=== PATIENT | female | born 1970 | race Caucasian/White ===

== ENCOUNTER 2018-01-30 12:04 | Observation (INO) ==
[2018-01-30] MEDS ORDERED: Ketorolac 15 MG/ML VIAL IVP ONE (12:52)
--- NOTE | 2018-01-30 12:56 | Emergency Department Note ---
Disposition Clinical Impression: Paresthesia of both feet Hand paresthesia Qualifiers: Laterality: bilateral Qualified Code(s): R20.2 - Paresthesia of skin Disposition: Admitted As Inpatient Condition: Good Referrals: NONE,PCP [Non-Partnered Physician] - Forms: ED Satisfaction Letter Time of Disposition: 15:46 General Adult HPI - General Chief complaint: ED Weakness Stated complaint: diffuse wekness from Dr. Sy Time Seen by Provider: 01/30/18 12:14 Source: patient, family Mode of arrival: ambulatory Limitations: no limitations, physical limitation Nursing Notes Reviewed: Yes Vital Signs Reviewed: Yes - History of Present Illness HPI Narrative: Patient presents emergency room from the neurology office today for evaluation of bilateral upper and lower extremity numbness sensation. Both these areas are isolated to distal to the wrist and ankles. Patient denies any trauma or injury. No other specific history patient seen and evaluated at outside facility and evaluated at the neurology office here today and they recommended she come in for laboratory workup imaging and admission. Patient is otherwise currently stable and has no other complaints. Onset (ago): week(s) Location: other Radiation: non-radiation Pain Severity: moderate Pain Scale: 5 Quality: other Consistency: constant Improves with: nothing Worsens with: nothing Associated symptoms: Reports: denies other symptoms Treatments Prior to Arrival: none - Related Data Home Medications Medication Instructions Recorded Confirmed Acyclovir [Zovirax] 800 mg PO BID 01/30/18 01/30/18 Buspirone HCl [Buspar] 30 mg PO BID 01/30/18 01/30/18 Cyclobenzaprine [Flexeril] 10 mg PO TID 01/30/18 01/30/18 MethylPREDNISolone See Taper PO AD 01/30/18 01/30/18 [MethylPREDNISolone Dose Pack] Allergies Allergy/AdvReac Type Severity Reaction Status Date / Time ciprofloxacin Allergy Difficulty Verified 01/30/18 12:11 Breathing All systems ED: reviewed and negative except as stated. Review of Systems: As Per HPI Constitutional: Reports: weakness. Denies: fever, chills Eyes: Denies: eye pain, eye discharge ENT ED: Denies: ear pain Cardiovascular: Denies: chest pain, palpitations, dyspnea on exertion, orthopnea Respiratory: Denies: cough, dyspnea, wheezes Gastrointestinal: Denies: abdominal pain, nausea, vomiting, diarrhea, constipation Genitourinary: Denies: urgency, dysuria, frequency Musculoskeletal: Reports: myalgia. Denies: back pain, neck pain Integumentary: Denies: rash, abrasion Neurological: Denies: headache Endocrine: Denies: fatigue Past Medical History - Past Medical History Attestation: Yes The following information was validated with the patient. Source: patient Medical history: Reports: other Psychiatric history: Reports: depression [employer] history: Reports: endometriosis - Social History Smoking Status: Never smoker Smokeless Tobacco Status: No Alcohol use: Reports: occasionally Drug use: Reports: none Physical Exam - General Limitations: physical limitation General appearance: alert, in no apparent distress - Head Head exam: atraumatic, normocephalic, normal inspection - Eye Eye exam: Present: normal appearance, PERRL, EOMI. Absent: miosis, mydriasis - ENT ENT exam: normal exam, normal oropharynx, mucous membranes moist - Neck Neck exam: Present: normal inspection, full ROM, trachea midline. Absent: tenderness, meningismus, lymphadenopathy - Chest Chest inspection: Present: normal inspection, symmetric chest wall rise - Respiratory Respiratory exam: Present: normal lung sounds bilaterally. Absent: respiratory distress, wheezes - Cardiovascular Cardiovascular exam: Present: regular rate, normal rhythm, normal heart sounds - Abdominal Exam Abdominal exam: Present: soft, Non-Tender, normal bowel sounds. Absent: tenderness, distention, guarding, rebound, rigidity - Extremities Exam Extremities exam: Present: normal inspection, full ROM, normal capillary refill. Absent: tenderness - Back Exam Back exam: Present: normal inspection - Neurological Exam Neurological exam: Present: alert, oriented X3, CN II-XII intact, normal gait, other - Skin Skin exam: Present: warm, dry, intact, normal color Course Course Narrative: 47-year-old female presents emergency room in the neurology office. Attempted to call the on-call neurologist Dr. sy. Patient has been seen and evaluated outside facility and sent to them and referral for possible issues of paresthesias to the hands and feet. The symptoms are isolated distal to the wrist and ankle at this point. She has no history of trauma or injury. No family history of MS, ALS, neurologic issues or deficits. Patient has not been started on a new medications. 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 Patient denies any other history of syphilis or neurologic issues. She has never had surgery or manipulation to her spine. Vital signs of an stable. She does not have any exposure to ticks. Is a context the situation she is sent to the emergency room for lumbar puncture and admission with possible TX. She is also recommended a Y evaluation. CBC chemistry magnesium and phosphorus along with calcium ordered here in the emergency room. CSF evaluation for syphilis, herpes, generalized evaluation will be completed. Patient will also have screening titers for [place] spotted fever and Lyme disease. Presentation is abnormal at this point. Head is atraumatic pupils are equal and reactive extraocular muscles are intact. EKG was collected shows sinus rhythm and no other acute pathology. There is one single T-wave inversion in lead 3 otherwise has no acute changes or issues. No acute signs of ST segment elevation. Patient will also have evaluation. At this point admission process to be established. Physical exam is unremarkable. Pupils are reactive patient's lungs are clear heart is regular abdomen is soft. She has what is described as paresthesias to the bilateral hands and feet otherwise his sensation in her calves lower forearm and upper arm as well as the upper thigh are all unremarkable. Patient will have this screening evaluation completed here in the disposition will be determined. Patient will most likely need admission. Consultation to neurology will be completed. Lumbar puncture was consented for this time there is benefits and alternatives this were discussed. Patient otherwise clinically stable. - Reevaluation(s) Reevaluation #1: Attempt was made at the lumbar punctures in the emergency room. One attempt at the L4-L5 distribution and one attempt at the L3-L4 distribution were completed. Bone was met on several advances at the L3 and L4 distribution. At that time the procedure was aborted considering after the bony anatomy was encountered patient started to have some blood in the needle. Radiology lumbar puncture will be completed this point admission process to be established. Time: 14:15 Reevaluation #2: LP was completed with fluoroscopy without any complication. Patient is comfortable to better this time per labs unremarkable. Hospitalist was contacted for admission and further management. The remainder of the laboratory workup will be completed inpatient setting. Consultation for neurology was placed in the chart at this time. No other recommendations or issues noted with the hospitalist. Patient is otherwise clinically stable. Time: 15:44 Vital Signs Temperature 98.3 F 01/30/18 12:11 Pulse Rate 94 01/30/18 12:11 Respiratory Rate 18 01/30/18 12:11 Blood Pressure 177/96 01/30/18 12:11 O2 Sat by Pulse Oximetry 97 01/30/18 12:11 Temperature 98.3 F 01/30/18 12:11 Pulse Rate 91 01/30/18 13:27 Respiratory Rate 16 01/30/18 13:27 Blood Pressure 176/104 01/30/18 13:27 O2 Sat by Pulse Oximetry 95 01/30/18 13:27 Oxygen Delivery Oxygen Delivery Room Air Procedures - Lumbar Puncture Consent Obtained: written consent Time Out Performed: Yes Patient Position: right lateral decubitus Skin Prep: 0.5% Chlorhexidine/Alcohol Local Anesthetic: lidocaine 1% Amount of anesthesia used (mL): 5 Spinal Needle Gauge: 20G Interspace Used: L4-L5 Fluid Initially Obtained: other Complications: other Medical Decision Making - MDM Narrative Medical decision making narrative: Paresthesias - Medical Records Medical records reviewed: Yes I reviewed the patient's medical records. - Lab Data Lab results reviewed: Yes I reviewed the patient's lab results. Result diagrams: 01/30/18 13:05 01/30/18 13:05 Lab Results 01/30/18 01/30/18 01/30/18 Range/Units 13:05 13:05 13:05 WBC 11.6 H (4.3-11.1) K/mcL RBC 5.02 H (3.82-4.97) M/mcL Hgb 14.2 (11.5-15.4) g/dL Hct 42.6 (35.3-44.9) % MCV 84.9 (83.0-100.0) fL MCH 28.3 (28.0-33.3) pg MCHC 33.3 (31.6-35.5) g/dL RDW 13.6 (11.5-14.5) % Plt Count 274 (140-400) K/mcL MPV 9.5 (9.4-12.4) fL Immature Gran % 0.5 (0-4) % Seg Neutrophils % 71.2 % Lymphocytes % 23.3 % Monocytes % 4.4 % Eosinophils % 0.1 % Basophils % 0.5 % Neutrophils # 8.2 (1.6-8.9) K/mcL Lymphocytes # 2.7 (0.6-4.6) K/mcL Monocytes # 0.5 (0.0-1.3) K/mcL Eosinophils # 0.0 (0.0-0.6) K/mcL Basophils # 0.1 (0.0-0.2) K/mcL Sodium 140 (136-145) mEq/L Potassium 3.9 (3.5-5.1) mEq/L Chloride 106 (98-107) mEq/L Carbon Dioxide 26 (23-29) mEq/L BUN 14 (6-20) mg/dL Creatinine 0.78 (0.60-1.20) mg/dL Est GFR ( Amer) > 60 (> 60) Est GFR (Non-Af Amer) > 60 (> 60) BUN/Creatinine Ratio 18 (6-26) Glucose 116 H (70-105) mg/dL Calculated Osmolality 291 (280-300) Calcium 10.1 (8.6-10.3) mg/dL Phosphorus 3.6 (2.7-4.5) mg/dL Magnesium 2.2 (1.6-2.6) mg/dL Total Bilirubin 0.4 (0.3-1.0) mg/dL AST 23 (13-39) Units/L ALT 30 (7-52) Units/L Alkaline Phosphatase 62 (34-104) Units/L Creatine Kinase 23 L (30-223) Units/L Serum Total Protein 7.4 (6.4-8.9) g/dL Albumin 4.5 (3.5-5.7) g/dL Globulin 2.9 (2.4-3.5) g/dL Albumin/Globulin Ratio 1.6 (1.1-2.2) TSH 1.342 (0.340-5.600) mcIU/mL Urine Color Yellow (Yellow) Urine Clarity Clear (Clear) Urine pH 6.5 (5.0-8.0) pH Units Ur Specific Wayne 1.022 (1.010-1.025) Urine Protein Negative (Neg-Trace) mg/dL Urine Glucose (UA) Normal (Normal) mg/dL Urine Ketones Negative (Negative) mg/dL Urine Blood Negative (Negative) Urine Nitrite Negative (Negative) Urine Bilirubin Negative (Negative) Urine Urobilinogen Normal (Normal) mg/dL Ur Leukocyte Esterase Negative (Negative) Ur Culture Indicated? NO (NO) - Radiology Data Radiology results reviewed: Yes I reviewed the patient's radiology results. - EKG Data EKG #1 EKG attestation: Yes I reviewed and interpreted this EKG. EKG results narrative: EKG shows sinus rhythm. Ventricular rate of 85. IL interval 151. QRS duration of 86. QTC of 417. Sandoval appears to be normal. No acute signs of ST segment elevation or abnormality. There is one slight T-wave inversion in lead 3 but otherwise unremarkable exam. No acute signs of WPW or Brugada syndrome.
[2018-01-30 13:18] LABS: Basophils # 0.1 K/mcL (0.0-0.2); Basophils % 0.5 %; Eosinophils % 0.1 %; Hematocrit 42.6 % (35.3-44.9); Hemoglobin 14.2 g/dL (11.5-15.4); Immature Granulocytes % 0.5 % (0-4); Lymphocytes # 2.7 K/mcL (0.6-4.6); Lymphocytes % 23.3 %; Mean Corpuscular HGB Conc 33.3 g/dL (31.6-35.5); Mean Corpuscular Hemoglobin 28.3 pg (28.0-33.3); Mean Corpuscular Volume 84.9 fL (83.0-100.0); Mean Platelet Volume 9.5 fL (9.4-12.4); Monocytes # 0.5 K/mcL (0.0-1.3); Monocytes % 4.4 %; Neutrophils # 8.2 K/mcL (1.6-8.9); Platelet Count 274 K/mcL (140-400); Red Blood Count 5.02 M/mcL (3.82-4.97); Red Cell Distribution Width 13.6 % (11.5-14.5); Segmented Neutrophils % 71.2 %
[2018-01-30] MEDS: 0.9 % Sodium Chloride 1,000 ML IVC SCH ×2 (13:20→23:15)
[2018-01-30 13:38] LABS: Alanine Aminotransferase 30 Units/L (7-52); Albumin 4.5 g/dL (3.5-5.7); Albumin/Globulin Ratio 1.6 (1.1-2.2); Alkaline Phosphatase 62 Units/L (34-104); Aspartate Amino Transferase 23 Units/L (13-39); BUN/Creatinine Ratio 18 (6-26); Bilirubin,Total 0.4 mg/dL (0.3-1.0); Blood Urea Nitrogen 14 mg/dL (6-20); Calcium 10.1 mg/dL (8.6-10.3); Carbon Dioxide 26 mEq/L (23-29); Chloride 106 mEq/L (98-107); Creatine Kinase 23 Units/L (30-223); Globulin 2.9 g/dL (2.4-3.5); Glucose 116 mg/dL (70-105); Magnesium 2.2 mg/dL (1.6-2.6); Osmolality,Calculated 291 (280-300); Phosphorous 3.6 mg/dL (2.7-4.5); Potassium 3.9 mEq/L (3.5-5.1); Sodium 140 mEq/L (136-145); Total Protein 7.4 g/dL (6.4-8.9); eGFR For African Americans > 60 (> 60); eGFR For Non-African Americans > 60 (> 60)
[2018-01-30 13:49] LABS: Bilirubin,Urine Negative (Negative); Blood,Urine Negative (Negative); Clarity,Urine Clear (Clear); Color,Urine Yellow (Yellow); Glucose,Urine (UA) Normal (Normal); Ketones,Urine Negative (Negative); Leukocyte Esterase,Urine Negative (Negative); Nitrite,Urine Negative (Negative); PH,Urine 6.5 pH Units (5.0-8.0); Protein,Urine Negative (Neg-Trace); Specific Gravity,Urine 1.022 (1.010-1.025); Urobilinogen,Urine Normal (Normal)
[2018-01-30 13:51] LABS: Thyroid Stimulating Hormone 1.342 mcIU/mL (0.340-5.600)
[2018-01-30] MEDS ORDERED: *HR* HYDROcodone/Acet 5/325 mg TABLET PO ONE (15:38)
[2018-01-30 15:53] LABS: Red Blood Cell,CSF < 0.002 M/mcL
[2018-01-30 15:54] LABS: Appearance,CSF Clear (Clear)
[2018-01-30] MEDS ORDERED: *HR* FentaNYL (PF) 100 MCG/2 ML VIAL IVP ONE ×4 (16:01→19:42)
[2018-01-30 16:36] LABS: Glucose,CSF 65 mg/dL (40-70); Total Protein,CSF 41 mg/dL (15-45)
[2018-01-30] MEDS ORDERED: *HR* LORazepam 2 MG/ML VIAL IVP ONE ×2 (17:29→17:52)
[2018-01-30] MEDS ORDERED: Acetaminophen 325 MG TABLET PO PRN (19:25)
[2018-01-30] MEDS ORDERED: Naloxone 0.4 MG/ML INJ IVP PRN (19:25)
[2018-01-30] MEDS ORDERED: Gadolinium Contrast Agent (WT Based) IV PRN (19:46)
--- NOTE | 2018-01-30 19:52 | Internal Med History&Physical ---
Date of Encounter: 01/31/18 Time of Encounter: 19:48 Internal Medicine - H&P: HPI Chief complaint: numbness/back pain Admitted From: Emergency Dept Plans for Post Hospital Care: Home History of present illness: Ms. Phipps is a 47 year old female who is fairly healthh with no chronic medical problems who presents with back pain and upper and lower extremities paresthesias that started on Friday. The patient was in her normal state of health up until Friday morning when she suddenly started having back pain that is severe. She also at the same time started having numbness from the wrists to her fingertips bilaterally in the upper extremity. In the lower extremities she also experienced similar complaints in the feet bilaterally. Over the last 5 days she has progressively gotten weaker to the point where today she could not stand up on her own and felt that her legs would give out. At the same time she continues to have back pain. She denies fevers but she reports being cold. She went to [facility] yesterday and she was put on a Medrol Dosepak and some muscle relaxants. She was discharged and today she was following with neurology who sent her to the ED today complaints. In the ED workup revealed a WBC count of 11.6. Respiratory laboratory workup was unremarkable. She had mildly elevated glucose at 116. In the ED she was given fentanyl 50 g as well as Toradol and 1 mg of Ativan as well as Percocet. She was noted to be hypertensive. She underwent a lumbar puncture which was unremarkable. The patient denies any headache, blurry vision, dysarthria, bowel or urinary incontinence, chest pain, shortness of breath, abdominal pain, or urinary symptoms. Past Med Surg Social Fam HX - Past Medical History Medical history: other Psychiatric history: depression - Social History Smoking Status: Never smoker Smokeless Tobacco Status: No Alcohol use: occasionally Drug use: none Internal Medicine - H&P: Meds Acyclovir [Zovirax] 800 mg PO BID 01/30/18 [History] Buspirone HCl [Buspar] 30 mg PO BID 01/30/18 [History] Cyclobenzaprine [Flexeril] 10 mg PO TID 01/30/18 [History] MethylPREDNISolone [MethylPREDNISolone Dose Pack] See Taper PO AD 01/30/18 [ History] 3 Allergy/AdvReac Type Severity Reaction Status Date / Time ciprofloxacin Allergy Difficulty Verified 01/30/18 12:11 Breathing All Systems PM: A 10-system review of systems was performed and is negative for pertinent findings except as documented above in the HPI. Review of systems: Review of systems are negative except for as mentioned above - Constitutional Vitals: Temp Pulse Resp BP Pulse Ox 97.9 F 80 15 157/88 97 01/30/18 19:15 01/30/18 19:15 01/30/18 19:15 01/30/18 19:15 01/30/18 19:15 Exam: GEN: NAD HEENT: AT, NC, No cyanosis, oral mucosa is moist, No JVD Lymphatics: No lymphadenoapthy Eyes: Extrocular muscles intact, anicteric CVS:RRR. S1, S2, No m/r/g RESP: CTAB ABD: Soft, NT, ND, +BS EXT: No edema, No rashes, 2+ DP NEURO: Nonfocal, CN II-XII intact, No focal motor or sensory deficits. The patient has no back tenderness. She has no sensory loss to pinprick throughout her lower extremities and upper extremities and her back. I started the patient up and she was very unsteady and almost collapsed. The patient has decreased reflexes in her knees. Other reflexes were intact however I did not have a reflex hammer use my stethoscope for this. Psych: Cooperative, Not anxious or depressed Internal Med - H&P Results - Labs CBC & Chem 7: 01/30/18 13:05 01/30/18 13:05 - Impressions ITS Impressions Chest X-Ray 01/30/18 16:30 IMPRESSION: No acute airspace disease identified. D/ / Mustapha Garcia / Mustapha Garcia Interpreting Provider: Mustapha Garcia - Assessment and plan (1) Paresthesia Current Visit: Yes Status: Acute Assessment and plan: The patient will be admitted with neurology consult. We will get MRIs of the cervical/thoracic/lumbar spine and an MRI brain. Check B12 and A1c. Check ESR/ CRP. Pain control. Muscle relaxant. (2) Back pain Current Visit: Yes Status: Acute Assessment and plan: As above. Qualifiers: Back pain location: back pain in unspecified location Chronicity: acute Back pain laterality: bilateral Qualified Code(s): M54.9 - Dorsalgia, unspecified (3) Leukocytosis Current Visit: Yes Status: Acute Assessment and plan: Patient has been on Medrol Dosepak and took a couple doses. This might explain this. No fever for now. LP was negative and UA was negative. We will monitor. Rule out a spinal abscess. Qualifiers: Leukocytosis type: unspecified Qualified Code(s): D72.829 - Elevated white blood cell count, unspecified (4) DVT prophylaxis Current Visit: Yes Status: Acute Assessment and plan: SCDs - Time Spent With Patient Total time spent is greater than 50% in coordination of care (as documented) at patient's floor/unit and/or counseling patient:
[2018-01-30] MEDS: *HR* HYDROcodone/Acet 5/325 mg TABLET PO PRN (21:51)
[2018-01-30] MEDS ORDERED: *HR* HYDROmorphone (PF) 1 MG/ML SYRINGE IVP ONE (22:48)
[2018-01-31] MEDS: *HR* FentaNYL (PF) 100 MCG/2 ML VIAL IVP PRN ×6 (01:37→16:04)
[2018-01-31] MEDS: 0.9 % Sodium Chloride 1,000 ML IVC SCH ×2 (01:50→11:51)
[2018-01-31 01:58] LABS: VBG Ionized Calcium 1.11 mmol/L (1.15-1.35)
[2018-01-31] MEDS: *HR* HYDROcodone/Acet 5/325 mg TABLET PO PRN (05:24)
[2018-01-31 10:20] LABS: Estimated Average Glucose 123 mg/dl; Hemoglobin A1C 5.9 %
[2018-01-31] MEDS ORDERED: Ondansetron 4 MG/2 ML VIAL IVP PRN (11:10)
[2018-01-31] MEDS: *HR* Promethazine 25 MG/ML VIAL IVP PRN ×2 (13:01→13:05)
[2018-01-31] MEDS: *HR* OxyCODONE/APAP 5/325 TABLET PO PRN ×2 (13:01→13:05)
--- NOTE | 2018-01-31 13:39 | Neurology - Consult Note ---
Date of Encounter: 01/31/18 Time of Encounter: 10:15 Assessment and Plan (1) Generalized muscle weakness Current Visit: Yes Status: Acute As far as this patient condition is concerned she seems to have an acute onset of this generalized weakness paresthesias along with back pain and predominantly symptoms of muscle aches and pain. She does have a GI symptoms about 2 or 3 weeks ago and is still having some nausea with it as well without any lab or radiological findings to explain her symptoms. The differential is quite broad from brain stem all the way to the peripheral nerves but so far all seems to be negative. She already had an MRI of the brain that did not show any evidence of ischemic abnormality in particularly no evidence of brainstem infarct At the same time no evidence of any spinal cord inflammation or compression. As far as other differentials include in particularly GBS at it can present in a similar fashion and more or less similar presentation , But the CSF analysis is been negative proteins are normal as well as WBC count Tick paralysis also in the differential but Lyme is negative Other Neuromuscular junction disease like Myasthenia gravis (MG) can produce weakness in any muscle group. Certain presentations are more common: And usually it is not that acute and I did not see any ocular symptoms other Muscle disease like Myositis , Dermatomyositis and polymyositis usually present with symmetric proximal muscle weakness, but usually presentation is not that acute. CPK is normal as well We do need to look into other metabolic c conditions most often cause generalized weakness without focal findings. most notably hypoglycemia and hypokalemic periodic paralysis. Periodic paralysis Severe electrolyte abnormalities can cause generalized or focal muscle weakness. So far all metabolic workup is been negative as well Life-threatening causes of generalized weakness A brief list of several important causes of generalized weakness is provided here to assist with the differential diagnosis and to allow ready access to additional information. No sign of sepsis or any cardiac abnormality on the lab Other neurological conditions like multiple sclerosis/acute demyelination also seems to be less likely with normal MRI of the brain Patient does some to have a some nausea and vomiting along with mild dehydration and possible hypovolemia that could be the reason for her symptoms considering all other especially neurological workup seems to be negative so far Considering patient remain symptomatic and no obvious diagnosis at this point I would recommend patient to be evaluated at a tertiary care center-like [facility] for a second opinion Discussed with the patient and her as well as primary team and who also agrees with the plan (2) Paresthesia of both feet Current Visit: Yes Status: Acute (3) Back pain Current Visit: Yes Status: Acute Qualifiers: Back pain location: back pain in unspecified location Chronicity: acute Back pain laterality: bilateral Qualified Code(s): M54.9 - Dorsalgia, unspecified History of Present Illness HPI: Ms. Phipps is a 47 year old female who is fairly healthh with no significant past medical history admitted from neurology clinic with symptoms of back pain, upper and lower extremities paresthesias and weakness that started on Friday. according to patient she was in her normal state of health up until Friday morning when she suddenly started having severe back pain, and numbness from the wrists to her fingertips bilaterally in the upper extremity. In the lower extremities she also experienced similar complaints in the feet bilaterally. Over the last 5 days she has progressively gotten weaker to the point where today she could not stand up on her own and felt that her legs would give out. She denies fevers but she reports being cold. She went to [facility] yesterday and she was put on a Medrol Dosepak and some muscle relaxants. She was discharged and today she was following with neurology where she seen Dr Sy. In the ED workup revealed a WBC count of 11.6. Respiratory laboratory workup was unremarkable. She had mildly elevated glucose at 116. In the ED she was given fentanyl, Toradol and 1 mg of Ativan as well as Percocet. She was noted to be hypertensive. Considering her acute symptoms and the concern of acute peripheral neuropathy like GBS She underwent a lumbar puncture that was unremarkable. The patient denies any headache, blurry vision, dysarthria, bowel or urinary incontinence, chest pain, shortness of breath, abdominal pain, or urinary symptoms. She continued to be symptomatic today she is having more or less similar symptoms that she is been having previously remains quite weak not able to get up and walk by herself still having a lot of paresthesias in upper or lower extremities along with muscle pain which is all over. So far all the workup including CSF analysis CPK all has been negative Past Med Surg Social Fam HX - Past Medical History Medical history: other Psychiatric history: depression - Social History Smoking Status: Never smoker Smokeless Tobacco Status: No Alcohol use: occasionally Drug use: none Medications and Allergies Acyclovir [Zovirax] 800 mg PO BID 01/30/18 [History] Buspirone HCl [Buspar] 30 mg PO BID 01/30/18 [History] Cyclobenzaprine [Flexeril] 10 mg PO TID 01/30/18 [History] MethylPREDNISolone [MethylPREDNISolone Dose Pack] See Taper PO AD 01/30/18 [ History] 3 Allergy/AdvReac Type Severity Reaction Status Date / Time ciprofloxacin Allergy Difficulty Verified 01/30/18 12:11 Breathing All Systems: The remainder of the systems were reviewed and are negative Physical Examination - Vital Signs Vital Signs: Initial Vital Signs Temp Pulse Resp BP Pulse Ox 98.3 F 94 18 177/96 97 01/30/18 12:11 01/30/18 12:11 01/30/18 12:11 01/30/18 12:11 01/30/18 12:11 - Exam Exam: GENERAL: un Comfortable, seem to be in distress HEENT: Normal LUNGS: CTA HEART: RRR, S1 S2 Audible, no murmur EXTREMITIES: No Pedal edema. DETAILED NEUROLOGICAL EXAMINATION: MENTAL STATUS: Oriented to person, place, date and situation. Memory: knows the President, Aware of recent events Recent Memory Intact Cranial Nerve Examination: CN - II: Visual Acuity, Field of Vision Normal, Fundus examination: No disk edema, Pupils- size shape reaction to light and accommodation: All normal. CN III, IV, : External ocular movements were intact, Pupils were reactive, Nodrooping of the eyelids CN V: Sensation over the face to light touch and pinprick all normal. Corneal reflexes not tested, jaw jerk normal. CN VII: No facial asymmetry, no flattening of nasolabial folds, no difficulty in closing the eyes, no loss of forehead wrinkles, no difficulty in eye-closure, frowning raising eyebrows. CNVIII: No significant hearing loss CN IX, X: Uvula centralized not deviated, Gag reflex: Not tested CN X1: Sternocleidomastoid, trapezius, normal or evidence of any weakness. CN X11: No Dysarthria, no wasting or fibrilation f tongue muscles, no deviation, tongue muscle strength normal. Motor examination: No hypertrophy, tone was normal, power grade 0-5 Upper limbs Proximal- difficulty in lifting the arms above the head. 3/3 shoulder AB/AD Distal- weakness in distal muscles 4/4 Lower limbs On formal testing 3/3 proximally and 4/4 KE< ADF. Coordination: [id number] slow and difficult to do Rapid alternating moment of wrist were very slow Sensory system: Superficial sensations- significant dysesthesia Pain- Pinprick, Temperature intact but inconsistent Deep sensation normal, Joint position sense normal. Cortical sensation, Tactile discrimination, localization and extinction all normal. Deep tendon reflexes. Symmetrical 1/1 in both upper ext , NO reflexes noted in lower extremeties. no evidence of Babinski. No sign of meningeal irritation Gait Examination: Deferred Results - Laboratory Findings CBC and BMP: 01/30/18 13:05 01/30/18 13:05 Abnormal lab findings: Abnormal lab results WBC 11.6 K/mcL (4.3-11.1) H 01/30/18 13:05 RBC 5.02 M/mcL (3.82-4.97) H 01/30/18 13:05 Glucose 116 mg/dL (70-105) H 01/30/18 13:05 Hemoglobin A1c 5.9 % (-5.6) H 01/31/18 01:24 Venous Ioniz Calcium 1.11 mmol/L (1.15-1.35) L 01/31/18 01:51 Creatine Kinase 23 Units/L (30-223) L 01/30/18 13:05 Vitamin B12 1111 pg/mL (250-1100) H 01/30/18 19:54 - Diagnostic Findings Additional findings: Patient does had an MRI of the brain awaits official reading No evidence of acute stroke or any other abnormality overall normal MRI of the brain MRI of the cervical spine shows degenerative changes at multiple levels but without any evidence of critical stenosis or any cord signal abnormality MRI of the thoracic spine also shows degenerative changes as well as MRI of the lumbar spine No evidence of any acute finding in the neuro axis that could explain her symptoms Consult Discharge Plan - Plan Referrals: Beatriz Magana MD [Primary Care Provider] -
--- NOTE | 2018-01-31 14:23 | Discharge Summary ---
Date of Encounter: 01/31/18 Time of Encounter: 14:14 - Discharge Diagnosis (1) Generalized muscle weakness Priority: Primary Status: Acute Assessment and Plan: Patient presents with progressive generalized muscle weakness as well as paresthesias of bilateral upper and lower extremities and back pain. Primary symptoms are muscle and joint pain. So far workup has been negative for the GBS (CSF analysis shows negative protein is as well as normal WBC count), tick paralysis (Lyme disease negative), no signs of brainstem infarct, no evidence of spinal cord inflammation or compression. MRI brain-unremarkable MRI T-spine showing multilevel degenerative changes; no evidence of abnormal spinal cord enhancement or epidural abscess, also no evidence of spinal cord compression MRI lumbar spine- Minimal degenerative changes of the lumbar spine. No significant spinal canal stenosis or neural foraminal stenosis. No evidence of epidural abscess. No abnormal contrast enhancement within spinal canal. Small amount of enhancement within the right paravertebral region with associated STIR signal. This may be postprocedural secondary to recent lumbar puncture. Clinical correlation is recommended. Diffusely low T1 signal throughout the lumbar vertebral bodies. Differential includes anemia, smoking, or other marrow replacing or marrow involving processes. MRI C-spine No convincing evidence of abnormal T2 signal within the spinal cord. No convincing evidence of epidural collection. No convincing evidence of spinal cord compression. Multilevel degenerative changes of the cervical spine, most severe at C4-C5, and C5-C6, as detailed above. Other differential diagnosis could include myasthenia gravis, mild cystitis, dermatomyositis status and polymyositis. Considering that the patient remains symptomatic and has increasing weakness and pain and no obvious diagnosis at this point it is recommended that the patient to be evaluated at a tertiary care center-like [facility] for a second opinion Assessment Discussed with the patient and her as well as neuology and who also agrees with the plan (2) Paresthesia Priority: Secondary Status: Acute (3) Hand paresthesia Priority: Secondary Status: Acute Qualifiers: Laterality: bilateral Qualified Code(s): R20.2 - Paresthesia of skin (4) Paresthesia of both feet Priority: Secondary Status: Acute (5) Back pain Priority: Secondary Status: Acute Assessment and Plan: Continue pain medication Qualifiers: Back pain location: back pain in unspecified location Chronicity: acute Back pain laterality: bilateral Qualified Code(s): M54.9 - Dorsalgia, unspecified (6) Leukocytosis Priority: Secondary Status: Acute Qualifiers: Leukocytosis type: unspecified Qualified Code(s): D72.829 - Elevated white blood cell count, unspecified (7) DVT prophylaxis Priority: Secondary Status: Acute Assessment and Plan: [facility] Hospital course: Ms. Phipps is a 47 year old female with no prior chronic medical problems. Presented with back pain and upper and lower showed a paresthesias that started on Friday. The patient reports that she was feeling weak and fatigued over the last month but was not having any of the paresthesias or back pain until Friday. She reports that since Friday the paresthesias pain has been getting worse. She is reporting numbness and tingling in bilateral wrists and fingertips as well as bilateral lower extremity. She is also endorsing increasing back pain and bilateral lower extremity pain. She has not been able to ambulate as she feels like her legs will give out due to weakness. She denies any ill contacts but admits she traveled to [place] approximately 2 months ago; daughter at bedside and reports that the patient has been having increased muscle and joint aches since this trip to [place]. denies any autoimmune disorders, denies any known tick bites. Patient's been tested and found to be negative for Lyme's disease, MRI of T-spine, C-spine, L-spine and brain completed and unremarkable. CSF collected and clear, protein within normal limits does not appear to be GBS. She endorses that she feels weaker today than yesterday and that she has been getting worse over the last 5 days.per my exam today the patient had a negative DTRs in bilateral lower extremity. This is concerning and was discussed with neurology. It was felt at this time it was more beneficial for the patient to transfer to a facility with iron daily. [facility] was called and the patient was accepted to [facility] neurology. She will be transferred out as soon as bed available Discharge discussed with: patient, family, nurse, leasing sales consultant - Time Spent with Patient Total time spent providing and/or coordinating discharge services: - Discharge Medications Home Medications: Acyclovir [Zovirax] 800 mg PO BID 01/30/18 [History] Buspirone HCl [Buspar] 30 mg PO BID 01/30/18 [History] Cyclobenzaprine [Flexeril] 10 mg PO TID 01/30/18 [History] Allergies/Adverse Reactions: 3 Allergy/AdvReac Type Severity Reaction Status Date / Time ciprofloxacin Allergy Difficulty Verified 01/30/18 12:11 Breathing Date of admission: 01/30/18 16:08 Primary care physician: Beatriz Magana MD Discharging clinician: Tramaine Lovelace Anticipated date of discharge: 01/31/18 - Constitutional Vitals: Temp Pulse Resp BP Pulse Ox 97.5 F L 70 20 171/96 100 01/31/18 11:36 01/31/18 11:36 01/31/18 11:36 01/31/18 13:19 01/31/18 11:36 General appearance: Present: A&O X 3 Exam: Appears very weak and fatigued - Head Head exam: Present: atraumatic, normocephalic - Eye Eye exam: Present: PERRL, conjuntiva pink, sclera anicteric Pupils: Present: PERRL - Neck Neck exam general surgery: Present: supple, trachea midline. Absent: lymphadenopathy - Respiratory Respiratory exam: Present: CTAB. Absent: accessory muscle use, rales, rhonchi, wheezes - Cardiovascular Cardiovascular exam: Present: RRR, +S1, +S2. Absent: diastolic murmur, gallop, rubs, systolic murmur - GI/Abdominal GI/Abdominal exam: Present: normal bowel sounds, soft, no peritoneal signs. Absent: distended, tenderness - Extremities Exam Extremities exam: Present: warm, radial pulses palpable and symmetrical. Absent : calf tenderness, cyanotic, pedal edema - Neurological Exam Neurological exam: Present: alert, oriented X3 Additional comments: No reflexes noted in lower extremity, no evidence of Babinski. No sign of meningeal irritation Unable to perform gait exam - Expanded Neurological Exam Neurological exam expanded: Absent: expressive aphasia, receptive aphasia Patient oriented to: Present: person, place, time Speech: Present: fluid speech Cranial Nerves: EOM's intact PM: Normal, nystagmus PM: Normal Neuro motor strength exam: LUE: 3 (Difficulty lifting her arms above head), RUE : 3, LLE: 4, RLE: 4 Coma Scale Eye Opening: Spontaneous Coma Scale Motor Response: Obeys Commands Coma Scale Verbal Response: Oriented Coma Scale Total: 15 - Skin Skin exam: Present: dry, intact - Patient Status Disposition: Transfer Critical Access Hosp Condition: Good Overall status at discharge: patient is not back to baseline - Discharge Instructions Follow Up With: Beatriz Magana MD [Primary Care Provider] -
[2018-01-31 15:02] VITALS: BP 127/73
[2018-02-03 08:08] LABS: HSV 1 Glycoprotein G IgG CSF 0.34 IV (<=0.89)
--- NOTE | 2018-02-03 14:14 | Electrocardiograph Report ---
[address] [address] Test Date: 2018-01-30 Pat Name: Lizeth Phipps Department: 104 Room: 3B Gender: F Psychology Professor: TMR : 1970 Requested By: Domingo Mendoza Order Number: [id number] Reading MD: Alok Lang Measurements Intervals [place] Rate: 85 P: 43 VA: 151 QRS: 15 QRSD: 86 T: 1 QT: 375 QTc: 417 Interpretive Statements SINUS RHYTHM Electronically Signed On 02-03-2018 14:12:55 EDT by Alok Lang
== END 2018-01-31 16:15 | disposition critical access hospital (66) ==
LOC: EMEROO 12:04 → 3BNU 12:04
PROVIDERS: ADMIT Internal Medicine; ATTEND Internal Medicine